=== PATIENT | male | born 1970 | race Caucasian/White ===

== ENCOUNTER 2021-12-29 11:19 | Observation (INO) ==
[2021-12-29 12:36] LABS: ABS Lymphocytes 0.2 10^3/ul (1.0-4.8); ABS Monocytes 0.4 10^3/ul (0-0.8); ABS Neutrophils 1.2 10^3/ul (1.5-7.7); Eosinophil % 0.2 %; Hematocrit 28 % (42-52); Hemoglobin 9.1 g/dL (14.0-18.0); Lymphocyte % 12.9 %; Mean Corpuscular HGB Conc 33 g/dL (31-36); Mean Corpuscular Hemoglobin 29 pg (27-31); Mean Corpuscular Volume 89 fL (80-94); Mean Platelet Volume 6.7 fL (7.4-10.4); Platelet Count 461 10^3/uL (150-450); Red Cell Distribution Width 16 % (10-15); White Blood Count 1.9 10^3/uL (3.5-10.8)
[2021-12-29 12:47] LABS: Calcium 8.9 mg/dL (8.6-10.3); Magnesium 1.2 mg/dL (1.9-2.7); Potassium 3.2 mmol/L (3.5-5.0)
[2021-12-29 12:52] LABS: eGFR CKD-EPI 103.1 (>60)
[2021-12-29] MEDS ORDERED: NS 0.9% 1000 ml BAG 1,000 ML IV SCH (13:15)
[2021-12-29] MEDS ORDERED: Dexamethasone IV 4 MG/ML VIAL 1 ml VIAL IV SLOW PU ONE (13:18)
[2021-12-29] MEDS ORDERED: Ondansetron 4 mg VIAL 2 MG/ML 2 ml VIAL ONE (13:29)
[2021-12-29] MEDS ORDERED: Enoxaparin 40 MG/0.4 ML SYR SUBCUT SCH (14:00)
[2021-12-29] MEDS ORDERED: Magnesium Sulfate 2 gm BAG 2 GM/50 ML BAG ONE (16:05)
[2021-12-29] MEDS ORDERED: Dexamethasone IV 4 MG/ML VIAL 1 ml VIAL ONE (16:30)
[2021-12-29] MEDS ORDERED: Magnesium Sulf 4 GM/100 ML IV 4,000 MG/100 ML BAG IVPB ONE (17:30)
[2021-12-29] MEDS ORDERED: Remdesivir 100 mg Vial 200 MG in NS 0.9% 250 ml 210 ML IV ONE (18:00)
[2021-12-29] MEDS: KCL 10 MEQ/50 ML IVPREMIX 10 MEQ/50 ML BAG IV SCH ×2 (20:14→22:48)
[2021-12-30] MEDS ORDERED: KCL 10 MEQ/50 ML IVPREMIX 10 MEQ/50 ML BAG ONE (00:09)
[2021-12-30] MEDS: KCL 10 MEQ/50 ML IVPREMIX 10 MEQ/50 ML BAG IV SCH (00:16)
[2021-12-30 05:30] LABS: ABS Lymphocytes 0.3 10^3/ul (1.0-4.8); ABS Monocytes 0.3 10^3/ul (0-0.8); Hematocrit 25 % (42-52); Hemoglobin 8.2 g/dL (14.0-18.0); Lymphocyte % 17.8 %; Mean Corpuscular HGB Conc 33 g/dL (31-36); Mean Corpuscular Hemoglobin 29 pg (27-31); Mean Corpuscular Volume 88 fL (80-94); Mean Platelet Volume 6.6 fL (7.4-10.4); Platelet Count 395 10^3/uL (150-450); Red Blood Count 2.83 10^6 /uL (4.18-5.48); Red Cell Distribution Width 16 % (10-15); White Blood Count 1.5 10^3/uL (3.5-10.8)
[2021-12-30 05:49] LABS: Calcium 8.5 mg/dL (8.6-10.3); Potassium 3.6 mmol/L (3.5-5.0); eGFR CKD-EPI 104.9 (>60)
[2021-12-30] MEDS ORDERED: Dexamethasone IV 4 MG/ML VIAL 1 ml VIAL IV SLOW PU SCH ×2 (09:00)
[2021-12-30 11:26] VITALS: BP 133/76
[2021-12-30] MEDS ORDERED: Remdesivir 100 mg Vial 100 MG in NS 0.9% 250 ml 230 ML IV SCH (21:00)
== END 2021-12-30 12:55 | disposition home or self-care (01) ==
LOC: CHOA 11:19 → MED 11:19
PROVIDERS: ADMIT Internal Medicine Medical Oncology; ATTEND Internal Medicine Medical Oncology

== ENCOUNTER 2022-03-18 11:11 | Observation (INO) ==
[~2022-03-18 11:11] MED LIST: Buffered Lidocaine 1% SYRIN 1 ml INTRADERM ONE; Famotidine IV 10 MG/ML 2 ml VIAL (20 mg) IV ONE; Lactated Ringers 1000 ml BAG 1,000 ML IV SCH
[2022-03-18] MEDS ORDERED: Clindamycin 900 MG/D5W BAG 900 MG/50 ML BAG IVPB ONE (11:39)
[2022-03-18 12:14] LABS: Rapid COVID-19 Molecular Undetected (Undetected)
[2022-03-18] MEDS ORDERED: Lidocaine 2% PF 10 ML AMP ONE (13:37)
[2022-03-18] MEDS ORDERED: Propofol 10 MG/ML 20 ML BTL ONE (13:37)
[2022-03-18] MEDS ORDERED: Rocuronium 50 mg VIAL 10 mg/ml 5 ml VIAL (50 mg) ONE (13:41)
[2022-03-18] MEDS ORDERED: fentaNYL 100 mcg/2 ml 50 MCG/ML VIAL ONE ×4 (13:42→18:12)
[2022-03-18] MEDS ORDERED: Midazolam 2 mg/2 ml VIAL 1 mg/ml 2 ml VIAL (2 mg) ONE (13:42)
[2022-03-18] MEDS ORDERED: Methylene Blue 0.5 % 50 MG/10 ML AMP IV ONE (14:25)
[2022-03-18] MEDS ORDERED: Bupivacaine 0.25% w/EPI 10 ML SDV ONE ×2 (14:26→16:39)
[2022-03-18] MEDS ORDERED: Heparin 5000 UNITS/ML 1 mL VIAL ONE (14:55)
[2022-03-18] MEDS ORDERED: Succinylcholine 200 mg VIAL 20 mg/ml 10 ml VIAL (200 mg) ONE (15:38)
[2022-03-18] MEDS ORDERED: Acetaminophen IV 1 GM/100ML 100 ML IV ONE (15:43)
[2022-03-18] MEDS ORDERED: Naloxone 0.4 mg VIAL 0.4 mg/ml 1 ml VIAL IV PRN (16:02)
[2022-03-18] MEDS ORDERED: Ondansetron 4 mg VIAL 2 MG/ML 2 ml VIAL IV PRN (16:04)
[2022-03-18] MEDS ORDERED: HYDROmorphone 0.5 MG/0.5 ML SYRINGE ONE (16:08)
[2022-03-18] MEDS ORDERED: HYDROmorphone 1 MG/1 ML SYRINGE IV SLOW PU PRN (17:27)
[2022-03-18] MEDS: fentaNYL 100 mcg/2 ml 50 MCG/ML VIAL IV PRN ×2 (18:15→18:45)
[2022-03-18] MEDS: Lactated Ringers 1000 ml BAG 1,000 ML IV SCH (20:00)
[2022-03-18 21:21] LABS: ABS Lymphocytes 0.2 10^3/ul (1.0-4.8); ABS Monocytes 0.5 10^3/ul (0-0.8); ABS Neutrophils 10.7 10^3/ul (1.5-7.7); Eosinophil % 0.1 %; Hematocrit 30 % (42-52); Hemoglobin 9.5 g/dL (14.0-18.0); Lymphocyte % 2.1 %; Mean Corpuscular HGB Conc 31 g/dL (31-36); Mean Corpuscular Hemoglobin 30 pg (27-31); Mean Corpuscular Volume 95 fL (80-94); Nucleated Red Blood Cells % 0.1; Red Blood Count 3.21 10^6 /uL (4.18-5.48); Red Cell Distribution Width 23 % (10-15); White Blood Count 11.4 10^3/uL (3.5-10.8)
[2022-03-18 21:27] LABS: ALT 15 U/L (7-52); Albumin 3.3 g/dL (3.2-5.2); Albumin/Globulin Ratio 1.5 (1-3); Alkaline Phosphatase 55 U/L (35-149); Blood Urea Nitrogen 15 mg/dL (6-24); CO2 Carbon Dioxide 22 mmol/L (22-32); Calcium 8.5 mg/dL (8.6-10.3); Chloride 99 mmol/L (101-111); Globulin 2.2 g/dL (2-4); Glucose 85 mg/dL (70-100); Sodium 132 mmol/L (135-145); Total Protein 5.5 g/dL (6.4-8.9); eGFR CKD-EPI 119.2 (>60)
[2022-03-18 22:15] LABS: Platelet Count Platelets clumped. 10^3/uL (150-450)
[2022-03-18] MEDS: Acetaminophen IV 1 GM/100ML 100 ML IV PRN (22:28)
[2022-03-18 22:49] LABS: Anion Gap 11 mmol/L (2-11)
[2022-03-18 23:37] LABS: Potassium Redraw 3.6 mmol/L (3.5-5.0)
[2022-03-19] MEDS: Lactated Ringers 1000 ml BAG 1,000 ML IV SCH ×3 (04:37→23:23)
[2022-03-19] MEDS: Heparin 5000 UNITS/ML 1 mL VIAL SUBCUT SCH ×3 (05:35→22:10)
[2022-03-19] MEDS: HYDROcodone/ACET. 7.5/325 LIQ 15 ML UDC PO PRN ×3 (11:29→23:21)
[2022-03-20] MEDS: Heparin 5000 UNITS/ML 1 mL VIAL SUBCUT SCH (06:57)
[2022-03-20] MEDS: Lactated Ringers 1000 ml BAG 1,000 ML IV SCH (07:57)
[2022-03-20] MEDS: Acetaminophen IV 1 GM/100ML 100 ML IV PRN (08:03)
[2022-03-20 08:09] LABS: Hematocrit 26 % (42-52); Hemoglobin 8.6 g/dL (14.0-18.0); Mean Corpuscular HGB Conc 33 g/dL (31-36); Mean Corpuscular Hemoglobin 31 pg (27-31); Mean Corpuscular Volume 93 fL (80-94); Mean Platelet Volume 7.1 fL (7.4-10.4); Platelet Count 351 10^3/uL (150-450); Red Blood Count 2.79 10^6 /uL (4.18-5.48); Red Cell Distribution Width 23 % (10-15); White Blood Count 8.3 10^3/uL (3.5-10.8)
[2022-03-20 08:10] LABS: Albumin 2.9 g/dL (3.2-5.2); Albumin/Globulin Ratio 1.4 (1-3); Calcium 8.6 mg/dL (8.6-10.3); Globulin 2.1 g/dL (2-4); Magnesium 1.6 mg/dL (1.9-2.7); Potassium 3.5 mmol/L (3.5-5.0); Total Bilirubin 0.5 mg/dL (0.2-1.0)
[2022-03-20] MEDS ORDERED: Magnesium Sulfate 2 gm BAG 2 GM/50 ML BAG IVPB ONE (08:20)
[2022-03-20 08:50] LABS: Acanthocytes 2+; Anisocytosis 2+; Schistocytes 1+
[2022-03-20 08:52] LABS: ABS Lymphocytes 0.4 10^3/ul (1.0-4.8); ABS Neutrophils 7.6 10^3/ul (1.5-7.7)
[2022-03-20] MEDS: HYDROcodone/ACET. 7.5/325 LIQ 15 ML UDC PO PRN ×2 (08:58→13:21)
[2022-03-20 11:53] VITALS: BP 119/68
== END 2022-03-20 13:35 | disposition home or self-care (01) ==
LOC: OR 11:11 → SSU 11:11
PROVIDERS: ADMIT Family Medicine; ATTEND Internal Medicine Hematology & Oncology

== ENCOUNTER 2022-10-09 11:50 | Observation (INO) ==
[~2022-10-09 11:50] MED LIST changes: -Famotidine IV 10 MG/ML 2 ml VIAL (20 mg) IV ONE; +Naloxone 0.4 mg VIAL 0.4 mg/ml 1 ml VIAL IV PRN; +Ondansetron 4 mg VIAL 2 MG/ML 2 ml VIAL IV PRN; +fentaNYL 100 mcg/2 ml 50 MCG/ML VIAL IV PRN
[2022-10-09] MEDS ORDERED: Rocuronium 50 mg VIAL 10 mg/ml 5 ml VIAL (50 mg) ONE (12:43)
[2022-10-09] MEDS ORDERED: fentaNYL 250 mcg/5 ml 50 MCG/ML 5 ml VIAL (250 MCG) ONE (12:44)
[2022-10-09] MEDS ORDERED: Midazolam 2 mg/2 ml VIAL 1 mg/ml 2 ml VIAL (2 mg) ONE (12:44)
[2022-10-09] MEDS ORDERED: Lidocaine 2% PF 5 ML VIAL ONE (12:45)
[2022-10-09] MEDS ORDERED: Propofol 10 MG/ML 20 ML BTL ONE (12:46)
[2022-10-09] MEDS ORDERED: Methylene Blue 0.5 % 50 MG/10 ML AMP IV ONE (13:28)
[2022-10-09] MEDS ORDERED: Succinylcholine 200 mg VIAL 20 mg/ml 10 ml VIAL (200 mg) ONE (14:11)
[2022-10-09] MEDS ORDERED: Phenylephrine IV 10 MG/ML 1 ml VIAL ONE (14:23)
[2022-10-09] MEDS ORDERED: Remifentanil 2 MG VIAL ONE (14:29)
[2022-10-09] MEDS ORDERED: Dexamethasone IV 4 MG/ML VIAL 1 ml VIAL ONE (14:34)
[2022-10-09] MEDS ORDERED: Ondansetron 4 mg VIAL 2 MG/ML 2 ml VIAL ONE (14:34)
[2022-10-09] MEDS ORDERED: Propofol 10 mg/ml 100 ML BTL 100 ML ONE (14:51)
[2022-10-09] MEDS ORDERED: Ondansetron 4 mg VIAL 2 MG/ML 2 ml VIAL IV PRN (16:38)
[2022-10-09] MEDS ORDERED: HYDROcodone/ACETAMIN 5/325 mg TAB PO PRN (16:41)
[2022-10-09] MEDS ORDERED: HYDROmorphone 0.5 MG/0.5 ML SYRINGE IV SLOW PU PRN (16:41)
[2022-10-09] MEDS ORDERED: Enoxaparin 40 MG/0.4 ML SYR SUBCUT SCH (20:00)
[2022-10-10 05:59] LABS: ABS Monocytes 0.7 10^3/ul (0-0.8); ABS Neutrophils 9.3 10^3/ul (1.5-7.7); Hematocrit 36 % (42-52); Lymphocyte % 9.2 %; Mean Corpuscular HGB Conc 33 g/dL (31-36); Mean Corpuscular Hemoglobin 30 pg (27-31); Mean Corpuscular Volume 90 fL (80-94); Mean Platelet Volume 7.2 fL (7.4-10.4); Platelet Count 424 10^3/uL (150-450); Red Blood Count 3.98 10^6 /uL (4.18-5.48); Red Cell Distribution Width 15 % (10-15)
[2022-10-10 06:21] LABS: Potassium 4.3 mmol/L (3.5-5.0)
[2022-10-10 06:22] LABS: Calcium 9.7 mg/dL (8.6-10.3); eGFR CKD-EPI 110.7 (>60)
[2022-10-10 15:43] VITALS: BP 102/72
== END 2022-10-10 18:30 | disposition home or self-care (01) ==
LOC: AA 11:50 → INTOOBSV 11:50 → EDSTATUS 12:30 → SSU 19:07
PROVIDERS: ADMIT Otolaryngology; ATTEND Otolaryngology